=== PATIENT | female | born 1955 | race Caucasian/White ===

== ENCOUNTER 2021-11-17 11:27 | Outpatient (CLI) | payer MEDICARE, SELFPAY ==
[2021-11-17 16:43] LABS: Free T4 Free Thyroxine 1.84 ng/mL (0.78-2.19)
== END 2021-11-17 11:28 | disposition home or self-care (01) ==
LOC: ANHWCLAB 11:31
PROVIDERS: PCP Nurse Practitioner Family; Referring Provider Internal Medicine Endocrinology, Diabetes & Metabolism; Visit Provider Internal Medicine Endocrinology, Diabetes & Metabolism
DX: E03.9 Hypothyroidism, unspecified (principal)
CPT/HCPCS: 36415; 84439; 84443